=== PATIENT | female | born 1970 | race Hispanic/Latino ===

== ENCOUNTER 2016-12-27 22:46 | Inpatient (IN) | payer MEDICARE, OTHER ==
[2016-12-27 22:47] VITALS: BMI 36.8
--- NOTE | 2016-12-27 23:46 | C.PDOC ---
History Of Present Illness 46 y/o female presents to ED with complaints of increasing shortness of breath, lower extremity edema, and increased abdominal girth over the last 2 weeks. Patient is currently on chemotherapy for leukemia. Speaking in complete sentences. Denies fever or chills. Patient also reports paroxysmal nocturnal dyspnea. Time Seen by Provider: 12/27/16 23:46 Chief Complaint (Nursing): Abdominal Pain History Per: Patient History/Exam Limitations: no limitations Onset/Duration Of Symptoms: Days Current Symptoms Are (Timing): Worse Context: Other Pain Scale Rating Of: 0 Associated Symptoms: denies: Fever, Chills, Nausea, Vomiting, Diarrhea Exacerbating Factors: Movement, Other (supine) Recent travel outside of the [place]: No Additional History Per: Family Abnormal Vaginal Bleeding: No Past Medical History Reviewed: Historical Data, Nursing Documentation, Vital Signs Vital Signs: Last Vital Signs Temp 97.5 F L 12/27/16 22:51 Pulse 104 H 12/28/16 01:12 Resp 20 12/28/16 01:12 BP 90/61 L 12/28/16 01:12 Pulse Ox 99 12/28/16 01:12 - Medical History PMH: Asthma, CHF, Diabetes, HTN, Malignancy (Leukemia ) - [employer] Procedures NEBULIZER THERAPY (12/05/13) RT & LT HEART ANGIOCARD (12/08/13) RT/LEFT HEART CARD CATH (12/08/13) TETANUS TOXOID ADMINIST (05/12/13) Family History: States: Unknown Family Hx - Social History Hx Tobacco Use: No Hx Alcohol Use: No Hx Substance Use: No - Immunization History Hx Tetanus Toxoid Vaccination: No Hx Influenza Vaccination: No Hx Pneumococcal Vaccination: No Review Of Systems Constitutional: Negative for: Fever, Chills Cardiovascular: Positive for: Paroxysmal Noc. Dyspnea, Edema (lower extremities) . Negative for: Chest Pain, Light Headedness Respiratory: Positive for: Shortness of Breath, SOB with Excertion. Negative for: Cough Gastrointestinal: Positive for: Other (increased abdominal girth). Negative for : Nausea, Vomiting Genitourinary: Negative for: Dysuria Musculoskeletal: Negative for: Back Pain Skin: Negative for: Rash Neurological: Negative for: Dizziness Psych: Negative for: Anxiety Physical Exam - Physical Exam Appears: Non-toxic, No Acute Distress, Other (awake, alert, oriented ) Skin: Warm, Dry Head: Atraumatic, Normacephalic Eye(s): bilateral: Normal Inspection Oral Mucosa: Moist Neck: Supple Chest: Symmetrical, No Tenderness Cardiovascular: Rhythm Regular Respiratory: Rales (bibasilar), No Rhonchi, No Stridor, No Wheezing Gastrointestinal/Abdominal: Soft, No Tenderness, Distention, No Guarding, No Rebound, Other (tympanic to percussion) Back: Normal Inspection Extremity: Normal ROM, Pedal Edema (pitting edema to bilateral lower extremities ), Capillary Refill (< 2 sec. ) Extremity: Bilateral: Atraumatic, Normal Color And Temperature Neurological/Psych: Oriented x3, Normal Speech, Normal Cognition Gait: Steady ED Course And Treatment - Laboratory Results Result Diagrams: 12/28/16 00:22 12/28/16 00:22 ECG: Interpreted By Me, Viewed By Me ECG Rhythm: Nonspecific Changes O2 Sat by Pulse Oximetry: 100 (RA) Pulse Ox Interpretation: Normal - Radiology CXR: Interpreted by Me, Viewed By Me CXR Interpretation: Yes: Cardiomegaly, Other (left effusion). No: Infiltrates, Fracture Progress Note: Aspirin 325mg, EKG, CXR, bloodwork ordered. Disposition Discussed With : Juana Floyd Comment[facility] took [facility] the care at 1:54 AM Doctor Will See Patient In The: Hospital Counseled Patient/Family Regarding: Studies Performed, Diagnosis - Disposition Disposition: HOSPITALIZED Disposition Time: 23:46 Condition: FAIR - POA Present On Arrival: Poor Glycemic Control - Clinical Impression Clinical Impression: Dyspnea, CHF (congestive heart failure) - Scribe Statement The provider has reviewed the documentation as recorded by the Renetta Martin Provider Scribe Attestation: All medical record entries made by the Barberibmercedez were at my direction and personally dictated by me. I have reviewed the chart and agree that the record accurately reflects my personal performance of the history, physical exam, medical decision making, and the department course for this patient. I have also personally directed, reviewed, and agree with the discharge instructions and disposition. Decision To Admit - Pt Status Changed To: Hospital Disposition Of: Inpatient - Admit Certification Admit to Inpatient:: After my assessment, the patient will require hospitalization for at least two midnights. This is because of the severity of symptoms shown, intensity of services needed, and/or the medical risk in this patient being treated as an outpatient. - InPatient: Physician Admission Certification:: After my assessment, the patient will require hospitalization for at least two midnights. This is because of the severity of symptoms shown, intensity of services needed, and/or the medical risk in this patient being treated as an outpatient. - . Bed Request Type: Telemetry Admitting Physician: Juana Floyd Patient Diagnosis: Dyspnea, CHF (congestive heart failure)
[2016-12-27] MEDS ORDERED: Aspirin 325 mg EC Tablets PO STA (23:51)
[2016-12-28 00:37] LABS: BASO # 0.1 K/uL (0.0-0.2); BASO % 1.4 % (0.0-2.0); EOS # 0.2 K/uL (0.0-0.7); EOS % 1.8 % (0.0-4.0); HEMATOCRIT 38.1 % (34.0-47.0); LYMPH # 0.9 K/uL (1.0-4.3); LYMPH % 9.5 % (20.0-40.0); MEAN CELL VOLUME 91.3 fL (81.0-99.0); MEAN CORPUSCULAR HEMOGLOBIN 29.7 pg (27.0-31.0); MEAN CORPUSCULAR HGB CONC 32.5 g/dL (33.0-37.0); MEAN PLATELET VOLUME 10.1 fL (7.2-11.7); MONO # 0.7 K/uL (0.0-0.8); MONO % 7.2 % (0.0-10.0); PLATELET COUNT 216 K/uL (130-400); RED CELL DISTRIBUTION WIDTH 15.6 % (11.5-14.5); WHITE BLOOD COUNT 9.4 K/uL (4.8-10.8)
[2016-12-28 00:38] LABS: INR 1.1
[2016-12-28 00:43] LABS: CHLORIDE 97 mmol/L (98-107)
[2016-12-28 00:44] LABS: POTASSIUM 4.1 mmol/L (3.6-5.2); SODIUM 133 mmol/L (132-148)
[2016-12-28 00:46] LABS: ALB/GLOB RATIO 0.7 (1.0-2.1); ALKALINE PHOSPHATASE 82 U/L (38-126); AST/SGOT 37 U/L (14-36); BILIRUBIN,TOTAL 0.8 mg/dL (0.2-1.3); CARBON DIOXIDE 26 mmol/L (22-30); GFR AFRICAN-AMERICAN 42; TOTAL PROTEIN 6.9 g/dL (6.3-8.3)
[2016-12-28 00:47] LABS: ALT/SGPT 20 U/L (9-52); BLOOD UREA NITROGEN 25 mg/dL (7-17); CALCIUM 7.2 mg/dl (8.6-10.4); GLUCOSE,RANDOM 169 mg/dL (65-105)
[2016-12-28 01:17] LABS: THYROID STIMULATING HORMONE 8.59 mIU/L (0.46-4.68)
[2016-12-28 02:03] LABS: BASOPHIL 1 % (0-2); EOSINOPHIL 2 % (0-4); NEUTROPHIL 83 % (50-75); TOTAL CELLS COUNTED 100
[2016-12-28 06:11] LABS: CHLORIDE 98 mmol/L (98-107)
[2016-12-28 06:12] LABS: POTASSIUM 3.5 mmol/L (3.6-5.2); SODIUM 133 mmol/L (132-148)
[2016-12-28 06:14] LABS: ALB/GLOB RATIO 0.7 (1.0-2.1); ALKALINE PHOSPHATASE 78 U/L (38-126); ALT/SGPT 26 U/L (9-52); AST/SGOT 25 U/L (14-36); BILIRUBIN,TOTAL 0.2 mg/dL (0.2-1.3); BLOOD UREA NITROGEN 25 mg/dL (7-17); CARBON DIOXIDE 27 mmol/L (22-30); GFR AFRICAN-AMERICAN 42; GLUCOSE,RANDOM 153 mg/dL (65-105); TOTAL PROTEIN 5.9 g/dL (6.3-8.3)
[2016-12-28 06:15] LABS: CALCIUM 7.3 mg/dl (8.6-10.4)
[2016-12-28] MEDS ORDERED: Fluticasone-Salmeterol 250-50mcg Diskus IH SCH (08:00)
--- NOTE | 2016-12-28 08:14 | RAD ---
PROCEDURE: CHEST RADIOGRAPH, 1 VIEW HISTORY: SOB COMPARISON: None available. FINDINGS: LUNGS: Possible left lower lobe infiltrate versus overlying soft tissue density. PLEURA: No pneumothorax or pleural fluid seen. CARDIOVASCULAR: Normal. OSSEOUS STRUCTURES: No significant abnormalities. VISUALIZED UPPER ABDOMEN: Normal. OTHER FINDINGS: None. IMPRESSION: Question left lower lobe infiltrate versus overlying soft tissue density.
[2016-12-28 08:59] LABS: FREE T4 1.38 ng/dL (0.78-2.19)
[2016-12-28] MEDS: Levothyroxine 25 MCG TAB PO SCH (09:09)
[2016-12-28 09:14] LABS: THYROID STIMULATING HORMONE 11.6 mIU/L (0.46-4.68)
[2016-12-28] MEDS: Ipratropium 0.02% Inhal Soln (0.5 mg/2.5 ml) UD IH SCH ×2 (09:42→14:31)
[2016-12-28] MEDS: Enoxaparin 60 mg Syringe SC SCH ×2 (12:41→23:30)
[2016-12-28] MEDS ORDERED: Potassium Chloride 20 mEq ER Tab PO ONE (12:46)
[2016-12-28] MEDS: Potassium Chloride 20 mEq ER Tab PO SCH (12:47)
--- NOTE | 2016-12-28 13:23 | CON ---
DATE: 12/28/2016 REASON FOR CONSULTATION: Atrial fibrillation. The patient is a very poor historian and when I spoke to the patient's daughter, Meseret at [phone], the daughter did not provide me with significant information. The patient is a 46-year-old female w ho was diagnosed with severe mitral stenosis in 2013, underwent a valve surgery in 2013 at [facility]. The patient or her daughter are not clear about what was done exactly. The valve card is not available to me and the daughter could not convey significant information from that card to me except for the word annuloplasty. Neither the patient nor the daughter are aware of Coumadin or any blood thinner medication given after the surgery. The patient was also diagnosed with leukemi a. Neither the daughter nor the patient know what kind of leukemia and was diagnosed at the same armando e at [facility]. The patient presented because of shortness of breath and leg swell ing as well as increased abdominal girth. The patient denies any retrosternal chest pain. The patie nt, at the time of cardiac catheterization in 2013, was reported to have had normal coronary arteries . SOCIAL HISTORY: Former smoker. MEDICATIONS: Advair 1 puff twice a day, Aldactone 25 mg once a day, aspirin 81 mg once a day, Flexer il 10 mg once a day, Glucophage 1 gram twice a day, Lasix 40 mg intravenously daily, Singulair 10 mg at bedtime, Synthroid 25 mcg once a day. REVIEW OF SYSTEMS: No fever or chills. No vomiting or diarrhea. No hemoptysis. No hematemesis or melena. PHYSICAL EXAMINATION: GENERAL: The patient is a middle-aged female who does not appear to be in acute distress. VITAL SIGNS: Blood pressure 93/65, heart rate 86, temperature 98.3, respirations 20. HEENT: Normocephalic. NECK: No JVD. CHEST: Diminished breath sounds over the left base. HEART: S1, S2 . ABDOMEN: Soft. EXTREMITIES: 2+ pitting edema. Chest x-ray revealed cardiomegaly, cannot rule out left lower lobe infiltrate or left pleural effusio n. EKG revealed atrial fibrillation at rate of 79, low voltage QRS, nonspecific T-wave changes. LABORATORIES: PT, PTT and INR are within normal limits. SMA-7: Sodium 133, potassium 3.5, chloride 98, CO2 27, glucose 153, BUN 25, creatinine 1.6. Two sets of troponins are negative. ProBNP 7350. TSH level is elevated at 11.6. ASSESSMENT: 1. Status post surgery for severe mitral stenosis since 2013, possibly mitral valve repair and annul oplasty. However, the details of the surgery are unavailable. 2. New onset atrial fibrillation. 3. History of leukemia. 4. Rule out deep venous thrombosis. RECOMMENDATIONS: Continue current Advair, Aldactone, aspirin, metformin, IV Lasix and optimize Synth roid replacement. Obtain an echocardiograph study and venous Doppler of the lower extremities. Star t therapeutic regimen of subcutaneous Lovenox therapy. Fernando Fischer MD cc: [id number] TT: 12/28/2016 13:23:05 Confirmation # [id number] Dictation # [id number]
--- NOTE | 2016-12-28 16:44 | CARD ---
APPROVED REPORT EXAM: Two-dimensional and M-mode echocardiogram with Doppler and color Doppler. Other Information Quality : AverageRhythm : NSR INDICATION Mitral Valve Disease Surgery/Intervention CABG: RISK FACTORS Hypertension Obesity Hyperlipidemia M-Mode DIMENSIONS RVDd2.62 (2.1-3.2cm)Left Atrium (MM)4.37 (2.5-4.0cm) IVSd1.29 (0.7-1.1cm)Aortic Root2.26 (2.2-3.7cm) LVDd4.14 (4.0-5.6cm)Aortic Cusp Exc.1.68 (1.5-2.0cm) PWd1.44 (0.7-1.1cm)FS (%) 33 % LVDs2.77 (2.0-3.8cm)LVEF (%)62 (>50%) Aortic Valve AoV Peak Jjygbyec828.2cm/Dinorah Peak GR.12mmHg Mitral Valve MV E Gclkjxlq105.1cm/sMV A Buyhlxkg05.1cm/sMV [id number] E/A ratio1.7MVA (PHT)2.21cm2 TDI E/Lateral E'0.0E/Medial E'0.0 Tricuspid Valve TR Peak Vmupkwbn835nd/sRAP BEIOIUWD29kbWnBL Peak Gr.41mmHg [id number] LEFT VENTRICLE There is mild to moderate concentric left ventricular hypertrophy. The left ventricular systolic function is normal. The left ventricular ejection fraction is within the normal range. Septal motion consistent with post-operative state. Transmitral Doppler flow pattern is Grade III restrictive diastolic dysfunction. RIGHT VENTRICLE The right ventricle is mildly to moderately dilated. The right ventricular systolic function is normal. ATRIA The left atrium is moderately dilated. The right atrium is moderately dilated. AORTIC VALVE The aortic valve is normal in structure. No aortic regurgitation is present. MITRAL VALVE There is no mitral valve regurgitation noted. Probable annuloplasty ring is noted in the mitral position. TRICUSPID VALVE The tricuspid valve is normal in structure. There is moderate tricuspid regurgitation. Right ventricular systolic pressure is estimated at 50-60 mmHg. There is moderate-severe pulmonary hypertension. PULMONIC VALVE There is mild pulmonic valvular regurgitation. GREAT VESSELS The aortic root is normal in size. Dilated IVC with poor inspiration collapse is consistent with elevated right atrial pressure. PERICARDIAL EFFUSION There is no pericardial effusion. <Conclusion> There is mild to moderate concentric left ventricular hypertrophy. The left ventricular systolic function is normal. Septal motion consistent with post-operative state. Transmitral Doppler flow pattern is Grade III restrictive diastolic dysfunction. The right ventricle is mildly to moderately dilated. The right ventricular systolic function is normal. Probable annuloplasty ring is noted in the mitral position. There is no mitral valve regurgitation noted. There is moderate tricuspid regurgitation. Right ventricular systolic pressure is estimated at 55-60 mmHg compatible with moderate-severe pulmonary hypertension. There is no pericardial effusion.
[2016-12-28] MEDS ORDERED: NILOTINIB HCL PO SCH (18:00)
--- NOTE | 2016-12-28 18:02 | CP.PCM.HP ---
History of Present Illness - History of Present Illness History of Present Illness: sob oeadeama abd distension Present on Admission - Present on Admission Any Indicators Present on Admission: No Review of Systems - Review of Systems Systems not reviewed;Unavailable: Acuity of Condition - Constitutional Constitutional: Weight Gain - EENT Eyes: As Per HPI Ears: As Per HPI Nose/Mouth/Throat: As Per HPI - Breasts Breasts: As Per HPI - Cardiovascular Cardiovascular: Dyspnea, Dyspnea on Exertion, Edema, Leg Edema, Orthopnea, Palpitations - Respiratory Respiratory: Dyspnea - Gastrointestinal Gastrointestinal: As Per HPI - Genitourinary Genitourinary: As Per HPI - Reproductive: Female Reproductive:Female: As Per HPI - Menstruation Menstruation: As Per HPI - Musculoskeletal Musculoskeletal: As Per HPI - Integumentary Integumentary: As Per HPI - Neurological Neurological: As Per HPI - Endocrine Endocrine: As Per HPI - Hematologic/Lymphatic Hematologic: As Per HPI Past Patient History - Past Social History Smoking Status: Never Smoked - CARDIAC Hx Congestive Heart Failure: Yes Hx Hypertension: Yes - PULMONARY Hx Asthma: Yes - ENDOCRINE/METABOLIC Hx Diabetes Mellitus Type 2: Yes - HEMATOLOGICAL/ONCOLOGICAL Hx Leukemia: Yes - PSYCHIATRIC Hx Substance Use: No - SURGICAL HISTORY Hx Open Heart Surgery: Yes Other/Comment: ONE OVARY REMOVED - ANESTHESIA Hx Anesthesia: Yes Hx Anesthesia Reactions: No Meds Allergies/Adverse Reactions: Allergies Allergy/AdvReac Type Severity Reaction Status Date / Time No Known Allergies Allergy Verified 12/27/16 22:56 Physical Exam - Constitutional Appears: Non-toxic - Head Exam Head Exam: NORMAL INSPECTION - Eye Exam Eye Exam: Normal appearance Pupil Exam: PERRL - ENT Exam ENT Exam: Mucous Membranes Moist - Neck Exam Neck exam: Positive for: Full Rom - Respiratory Exam Respiratory Exam: Decreased Breath Sounds, Rales - Cardiovascular Exam Cardiovascular Exam: Irregular Rhythm - GI/Abdominal Exam GI & Abdominal Exam: Normal Bowel Sounds - Rectal Exam Rectal Exam: NORMAL INSPECTION - Extremities Exam Extremities exam: Positive for: calf tenderness, pedal edema - Back Exam Back exam: NORMAL INSPECTION - Neurological Exam Neurological exam: Alert, Oriented x3 - Psychiatric Exam Psychiatric exam: Normal Mood Results - Vital Signs Recent Vital Signs: Last Vital Signs Temp 98.9 F 12/28/16 16:16 Pulse 68 12/28/16 16:16 Resp 18 12/28/16 16:16 BP 97/64 L 12/28/16 16:16 Pulse Ox 98 05/08/17 16:16 - Labs Result Diagrams: 12/28/16 00:22 12/28/16 06:01 Labs: Laboratory Results - last 24 hr 12/28/16 12/28/16 12/28/16 06:01 06:01 07:17 Sodium 133 Potassium 3.5 L Chloride 98 Carbon Dioxide 27 Anion Gap 12 BUN 25 H Creatinine 1.6 H Est GFR ( Amer) 42 Est GFR (Non-Af Amer) 35 POC Glucose (mg/dL) 138 H Random Glucose 153 H Calcium 7.3 L Total Bilirubin 0.2 AST 25 ALT 26 Alkaline Phosphatase 78 Total Creatine Kinase 44 CK-MB (Mass) 0.87 Troponin I, Quant < 0.0120 NT-Pro-B Natriuret Pep 7350 H Total Protein 5.9 L Albumin 2.4 L Globulin 3.4 Albumin/Globulin Ratio 0.7 L Free T4 1.38 TSH 3rd Generation 11.60 H 12/28/16 12/28/16 11:50 16:47 Sodium Potassium Chloride Carbon Dioxide Anion Gap BUN Creatinine Est GFR ( Amer) Est GFR (Non-Af Amer) POC Glucose (mg/dL) 188 H 138 H Random Glucose Calcium Total Bilirubin AST ALT Alkaline Phosphatase Total Creatine Kinase CK-MB (Mass) Troponin I, Quant NT-Pro-B Natriuret Pep Total Protein Albumin Globulin Albumin/Globulin Ratio Free T4 TSH 3rd Generation Assessment & Plan - Assessment and Plan (Free Text) Assessment: chf atrial fibrilation dm [place] obesity Plan: as per orders - Date & Time Date: 12/28/16 Time: 18:05
[2016-12-28] MEDS: Magnesium Oxide 400 mg Tab UD PO SCH (18:52)
[2016-12-28] MEDS: NILOTINIB HCL PO SCH (19:43)
[2016-12-28] MEDS ORDERED: Sodium Chloride 0.9% 500 ML IV ONE (21:23)
[2016-12-28] MEDS ORDERED: Digoxin 500 mcg/2ml (0.5 mg/2ml) Inj IVP ONE (21:56)
[2016-12-28] MEDS ORDERED: Digoxin 250 mcg (0.25 mg) Tab PO STA (22:08)
[2016-12-28] MEDS: Pantoprazole 40 mg EC Tab PO SCH (22:27)
[2016-12-29] MEDS: Levothyroxine 25 MCG TAB PO SCH (06:10)
--- NOTE | 2016-12-29 07:40 | CARD ---
APPROVED REPORT EKG Measurement Heart [id number] <Conclusion> Atrial fibrillation Low voltage QRS Nonspecific T wave abnormality Abnormal ECG
[2016-12-29] MEDS: Ipratropium 0.02% Inhal Soln (0.5 mg/2.5 ml) UD IH SCH ×3 (08:28→19:18)
[2016-12-29] MEDS: Potassium Chloride 20 mEq ER Tab PO SCH (09:42)
[2016-12-29] MEDS: Magnesium Oxide 400 mg Tab UD PO SCH ×2 (09:43→18:50)
--- NOTE | 2016-12-29 10:22 | CARD ---
APPROVED REPORT EKG Measurement Heart [id number] <Conclusion> Atrial fibrillation with rapid ventricular response Low voltage QRS Nonspecific T wave abnormality Abnormal ECG
[2016-12-29] MEDS: Enoxaparin 60 mg Syringe SC SCH ×2 (10:34→22:45)
[2016-12-29] MEDS: NILOTINIB HCL PO SCH ×2 (10:34→18:50)
--- NOTE | 2016-12-29 11:46 | CP.PCM.PN ---
Subjective - Date & Time of Evaluation Date of Evaluation: 12/29/16 Time of Evaluation: 11:43 - Subjective Subjective: PT STILL FEELS SOB SWALLEN LEGS STAY IN BED AFRAID OF FALLING Objective - Vital Signs/Intake and Output Vital Signs (last 24 hours): Temp Pulse Resp BP Pulse Ox 98.1 F 115 H 20 119/69 96 12/29/16 07:30 12/29/16 07:30 12/29/16 07:30 12/29/16 09:47 12/29/16 07:30 Intake and Output: 12/29/16 12/29/16 06:59 18:59 Intake Total 400 480 Balance 400 480 - Medications Medications: Current Medications Aspirin (Ecotrin) 81 mg PO DAILY [facility] Last Admin: 12/29/16 09:42 Dose: 81 mg Atenolol (Tenormin) 25 mg PO DAILY [facility] Last Admin: 12/29/16 09:43 Dose: 25 mg Digoxin (Lanoxin) 0.25 mg PO DAILY@1800 [facility] Enoxaparin Sodium (Lovenox) 60 mg SC Q12 [facility] Last Admin: 12/29/16 10:34 Dose: 60 mg Ferrous Sulfate (Feosol) 325 mg PO BID [facility] Last Admin: 12/29/16 09:42 Dose: 325 mg Furosemide (Lasix) 40 mg IVP DAILY [facility] Last Admin: 12/29/16 09:47 Dose: 40 mg Home Med (Nilotinib Hcl [Tasigna]) 2 cap PO BID [facility] Last Admin: 12/29/16 10:34 Dose: 2 cap Ipratropium [place] (Atrovent) 0.5 mg IH RTID [facility] Last Admin: 12/29/16 08:28 Dose: 0.5 mg Levothyroxine Sodium (Synthroid) 25 mcg PO DAILY@0630 [facility] Last Admin: 12/29/16 06:10 Dose: 25 mcg Magnesium Oxide (Mag-Ox) 400 mg PO BID [facility] Last Admin: 12/29/16 09:43 Dose: 400 mg Metformin HCl (Glucophage) 1,000 mg PO BID [facility] Last Admin: 12/29/16 09:43 Dose: 1,000 mg Pantoprazole Sodium (Protonix Ec Tab) 40 mg PO HS [facility] Last Admin: 12/28/16 22:27 Dose: Not Given Potassium Chloride (K-Dur 20 Meq Er Tab) 20 meq PO DAILY [facility] Last Admin: 12/29/16 09:42 Dose: 20 meq Spironolactone (Aldactone) 25 mg PO DAILY SURAJ Last Admin: 12/29/16 09:41 Dose: 25 mg - Labs Labs: 12/28/16 06:01 PT 12.1 SECONDS (9.7-12.2) 12/28/16 00:22 INR 1.1 12/28/16 00:22 APTT 34 SECONDS (21-34) 12/28/16 00:22 - Constitutional Appears: Non-toxic - Head Exam Head Exam: NORMAL INSPECTION - Eye Exam Eye Exam: Normal appearance Pupil Exam: NORMAL ACCOMODATION - ENT Exam ENT Exam: Normal Exam - Neck Exam Neck Exam: Full ROM - Respiratory Exam Respiratory Exam: Decreased Breath Sounds, Rales - Cardiovascular Exam Cardiovascular Exam: Irregular Rhythm - GI/Abdominal Exam GI & Abdominal Exam: Normal Bowel Sounds - Exam External exam: Swelling - Extremities Exam Extremities Exam: Calf Tenderness - Back Exam Back Exam: NORMAL INSPECTION - Psychiatric Exam Psychiatric exam: Normal Affect - Skin Skin Exam: Normal Color Assessment and Plan - Assessment and Plan (Free Text) Assessment: CHF AT FIB COPD GENERALISED WEEKNESS Plan: DISCUSED WITH DR LEXI THOMAS PER ORDERS
--- NOTE | 2016-12-29 13:24 | PN ---
DATE: 12/29/2016 The patient's shortness of breath has improved. She is still experiencing leg swelling. No retroste rnal chest pain. PHYSICAL EXAMINATION: VITAL SIGNS: Blood pressure 119/69, heart rate 92, temperature 98.1, respirations 20. HEENT: Normocephalic. NECK: No JVD. CHEST: Bibasilar rhonchi. HEART: S1, S2 regular. ABDOMEN: Soft. EXTREMITIES: 2+ pitting edema. Venous Doppler of the lower extremity, preliminary report is no DVT. Three sets of troponins are neg ative. ProBNP 7350. Echocardiography study was consistent with mild to moderate concentric LVH with normal left ventricular systolic function. Grade III restrictive diastolic dysfunction. Mitral celia uloplasty ring. Moderate to severe pulmonary hypertension. ASSESSMENT: 1. Status post mitral valve annuloplasty. 2. Moderate to severe pulmonary hypertension. 3. Right-sided heart failure. 4. New onset atrial fibrillation. 5. History of leukemia, which was treated recently with chemotherapy. RECOMMENDATIONS: Continue Aldactone at 25 mg t.i.d., aspirin 81 mg once a day, ferrous sulfate 325 m g twice a day, Lanoxin 0.25 mg orally daily, Lasix 40 mg intravenously daily, K-Dur 20 mEq orally onc e a day, therapeutic subcutaneous Lovenox at 60 mg twice a day, atenolol 25 mg daily. The case was d iscussed with the primary physician, Dr. Juana Floyd, and yesterday the patient was started on digox in, which included 0.25 mg single intravenous dose besides the daily oral regimen of 0.25 mg after sh e had rapid atrial fibrillation on the monitor. Fernando Fischer MD cc: [id number] TT: 12/29/2016 13:24:13 Confirmation # [id number] Dictation # [id number] en
[2016-12-29] MEDS ORDERED: Digoxin 250 mcg (0.25 mg) Tab PO SCH (18:00)
--- NOTE | 2016-12-29 20:04 | VASCLAB ---
PROCEDURE: Lower Extremity Venous Duplex Exam. HISTORY: r/o DVT PRIORS: None. TECHNIQUE: Bilateral common femoral, femoral, popliteal and posterior tibial, peroneal and great saphenous veins were evaluated. Flow was assessed with color Doppler, compressibility, assessment of phasic flow and augmentation response. Report prepared by Brendan Fernandez, ROBERT, RVT FINDINGS: RIGHT: 1. Common Femoral Vein: 1.1. Compressibility - Fully compressible: Thrombus - None : Flow - Phasic: Augmentation -Normal: Reflux - None. 2. Femoral Vein: 2.1. Compressibility - Fully compressible: Thrombus - None : Flow - Phasic: Augmentation -Normal: Reflux - None. 3. Popliteal Vein: 3.1. Compressibility - Fully compressible: Thrombus - None : Flow - Phasic: Augmentation -Normal: Reflux - None. 4. Posterior Tibial Vein: 4.1. Compressibility - Fully compressible: Thrombus - None: Flow - Phasic: Augmentation -Normal: Reflux - None. 5. Peroneal Vein: 5.1. Compressibility - Fully compressible: Thrombus - None: Flow - Phasic: Augmentation -Normal: Reflux - None. 6. Great Saphenous Vein: 6.1. Compressibility - Fully compressible: Thrombus - None: Flow - Phasic: Augmentation - Normal: Reflux - None. LEFT: 1. Common Femoral Vein: 1.1. Compressibility - Fully compressible: Thrombus - None: Flow - Phasic: Augmentation -Normal: Reflux - None. 2. Femoral Vein: 2.1. Compressibility - Fully compressible: Thrombus - None: Flow - Phasic: Augmentation -Normal: Reflux - None. 3. Popliteal Vein: 3.1. Compressibility - Fully compressible: Thrombus - None : Flow - Phasic: Augmentation -Normal: Reflux - None. 4. Posterior Tibial Vein: 4.1. Compressibility - Fully compressible: Thrombus - None: Flow - Phasic: Augmentation -Normal: Reflux - None. 5. Peroneal Vein: 5.1. Compressibility - Fully compressible: Thrombus - None: Flow - Phasic: Augmentation -Normal: Reflux - None. 6. Great Saphenous Vein: 6.1. Compressibility - Fully compressible: Thrombus - None: Flow - Phasic: Augmentation - Normal: Reflux - None. OTHER FINDINGS: Bilateral lower extremity soft tissue edema. IMPRESSION: Right: No evidence of deep or superficial vein thrombosis of the right lower extremity. Normal valve function noted of the right side. Left: No evidence of deep or superficial vein thrombosis of the left lower extremity. Normal valve function noted of the left side.
[2016-12-29] MEDS: Pantoprazole 40 mg EC Tab PO SCH (22:45)
[2016-12-30] MEDS: Levothyroxine 25 MCG TAB PO SCH (05:55)
[2016-12-30 07:19] LABS: BASO % 0.7 % (0.0-2.0); EOS # 0.2 K/uL (0.0-0.7); EOS % 2.4 % (0.0-4.0); HEMATOCRIT 33.7 % (34.0-47.0); LYMPH # 0.6 K/uL (1.0-4.3); LYMPH % 9.8 % (20.0-40.0); MEAN CELL VOLUME 90.9 fL (81.0-99.0); MEAN CORPUSCULAR HEMOGLOBIN 29.9 pg (27.0-31.0); MEAN CORPUSCULAR HGB CONC 32.9 g/dL (33.0-37.0); MEAN PLATELET VOLUME 9.7 fL (7.2-11.7); MONO # 0.6 K/uL (0.0-0.8); MONO % 8.5 % (0.0-10.0); PLATELET COUNT 170 K/uL (130-400); RED CELL DISTRIBUTION WIDTH 15.3 % (11.5-14.5); WHITE BLOOD COUNT 6.5 K/uL (4.8-10.8)
[2016-12-30 07:46] LABS: POTASSIUM 3.7 mmol/L (3.6-5.2)
[2016-12-30 07:49] LABS: CALCIUM 7.3 mg/dl (8.6-10.4)
[2016-12-30] MEDS: Ipratropium 0.02% Inhal Soln (0.5 mg/2.5 ml) UD IH SCH ×3 (07:55→19:46)
[2016-12-30 09:01] LABS: BASOPHIL 1 % (0-2); EOSINOPHIL 3 % (0-4); NEUTROPHIL 83 % (50-75); TOTAL CELLS COUNTED 100
[2016-12-30] MEDS: Potassium Chloride 20 mEq ER Tab PO SCH (09:14)
[2016-12-30] MEDS: Magnesium Oxide 400 mg Tab UD PO SCH ×2 (09:14→18:34)
[2016-12-30] MEDS: NILOTINIB HCL PO SCH ×2 (09:15→18:36)
[2016-12-30] MEDS: Enoxaparin 60 mg Syringe SC SCH ×2 (11:00→22:58)
--- NOTE | 2016-12-30 17:45 | PN ---
DATE: 12/30/2016 SUBJECTIVE: The patient's shortness of breath has improved, as well as leg swelling. OBJECTIVE: VITAL SIGNS: Blood pressure 112/69, heart rate 99, temperature 97.5, respirations 20. HEENT: Normocephalic. NECK: No JVD. CHEST: Diminished breath sounds over the bases. HEART: S1, S2 regular. EXTREMITIES: 1+ pitting edema. LABORATORIES: Today's SMA-7: Sodium 132, potassium 3.7, chloride 99, CO2 of 26, glucose 129, BUN 21 , creatinine 1.5. Today's hemoglobin and hematocrit 11.1 and 33.7, white count and platelet count ar e within normal limit. Official report of venous Doppler of lower extremities is negative. ASSESSMENT: 1. New onset atrial fibrillation. 2. Status post what appears to be mitral valve repair with mitral annuloplasty for severe aortic sten osis. 3. History of leukemia. 4. Chronic renal insufficiency. RECOMMENDATIONS: Continue Aldactone 25 mg once a day, aspirin 81 mg once a day, K-Dur 20 mEq once a day. Reduce Lanoxin to 0.125 mg daily. Continue IV Lasix 40 mg once a day. Reduce Lovenox to 50 mg twice a day and start Coumadin therapy with initial dose today of 5 mg. Fernando Fischer MD cc: [id number] TT: 12/30/2016 17:45:08 Confirmation # [id number] Dictation # [id number]
[2016-12-30] MEDS ORDERED: Enoxaparin 60 mg Syringe SC SCH (18:00)
[2016-12-30] MEDS: Digoxin 125 mcg (0.125 mg) Tab PO SCH (18:35)
--- NOTE | 2016-12-30 19:00 | CP.PCM.PN ---
Subjective - Date & Time of Evaluation Date of Evaluation: 12/30/16 Time of Evaluation: 18:57 - Subjective Subjective: feels beter less sob still at fib Objective - Vital Signs/Intake and Output Vital Signs (last 24 hours): Temp Pulse Resp BP Pulse Ox 97.5 F L 99 H 20 112/69 97 12/30/16 15:30 12/30/16 15:30 12/30/16 15:30 12/30/16 15:30 12/30/16 15:30 Intake and Output: 12/30/16 12/30/16 06:59 18:59 Intake Total 105 Balance 105 - Medications Medications: Current Medications Aspirin (Ecotrin) 81 mg PO DAILY [facility] Last Admin: 12/30/16 09:13 Dose: 81 mg Atenolol (Tenormin) 25 mg PO DAILY [facility] Last Admin: 12/30/16 09:13 Dose: 25 mg Digoxin (Lanoxin) 0.125 mg PO DAILY@1800 [facility] Last Admin: 12/30/16 18:35 Dose: 0.125 mg Enoxaparin Sodium (Lovenox) 50 mg SC Q12H [facility] Ferrous Sulfate (Feosol) 325 mg PO BID [facility] Last Admin: 12/30/16 18:34 Dose: 325 mg Furosemide (Lasix) 40 mg IVP DAILY [facility] Last Admin: 12/30/16 09:30 Dose: Not Given Home Med (Nilotinib Hcl [Tasigna]) 2 cap PO BID [facility] Last Admin: 12/30/16 18:36 Dose: 2 cap Ipratropium [place] (Atrovent) 0.5 mg IH RTID [facility] Last Admin: 12/30/16 13:34 Dose: 0.5 mg Levothyroxine Sodium (Synthroid) 25 mcg PO DAILY@0630 [facility] Last Admin: 12/30/16 05:55 Dose: 25 mcg Magnesium Oxide (Mag-Ox) 400 mg PO BID [facility] Last Admin: 12/30/16 18:34 Dose: 400 mg Metformin HCl (Glucophage) 1,000 mg PO BID [facility] Last Admin: 12/30/16 18:34 Dose: 1,000 mg Pantoprazole Sodium (Protonix Ec Tab) 40 mg PO HS [facility] Last Admin: 12/29/16 22:45 Dose: 40 mg Potassium Chloride (K-Dur 20 Meq Er Tab) 20 meq PO DAILY [facility] Last Admin: 12/30/16 09:14 Dose: 20 meq Spironolactone (Aldactone) 25 mg PO DAILY [facility] Last Admin: 12/30/16 09:15 Dose: 25 mg - Labs Labs: 12/30/16 07:05 12/30/16 07:05 PT 12.1 SECONDS (9.7-12.2) 12/28/16 00:22 INR 1.1 12/28/16 00:22 APTT 34 SECONDS (21-34) 12/28/16 00:22 - Constitutional Appears: Non-toxic - Head Exam Head Exam: NORMAL INSPECTION - Eye Exam Eye Exam: Normal appearance Pupil Exam: NORMAL ACCOMODATION - ENT Exam ENT Exam: Mucous Membranes Moist - Neck Exam Neck Exam: Full ROM - Respiratory Exam Respiratory Exam: Decreased Breath Sounds - Cardiovascular Exam Cardiovascular Exam: Irregular Rhythm - GI/Abdominal Exam GI & Abdominal Exam: Normal Bowel Sounds - Rectal Exam Rectal Exam: NORMAL INSPECTION - Extremities Exam Extremities Exam: Full ROM, Pedal Edema - Back Exam Back Exam: NORMAL INSPECTION - Neurological Exam Neurological Exam: Normal Gait - Psychiatric Exam Psychiatric exam: Normal Affect Assessment and Plan - Assessment and Plan (Free Text) Assessment: chf at fib obesity Plan: as per orders
[2016-12-30] MEDS: Pantoprazole 40 mg EC Tab PO SCH (22:58)
[2016-12-31] MEDS: Levothyroxine 25 MCG TAB PO SCH (06:21)
[2016-12-31] MEDS: Ipratropium 0.02% Inhal Soln (0.5 mg/2.5 ml) UD IH SCH ×3 (07:36→21:32)
[2016-12-31 08:05] LABS: POTASSIUM 4.4 mmol/L (3.6-5.2)
[2016-12-31 08:08] LABS: CALCIUM 7.5 mg/dl (8.6-10.4)
[2016-12-31 08:12] LABS: INR 1.1
[2016-12-31] MEDS: Potassium Chloride 20 mEq ER Tab PO SCH (09:37)
[2016-12-31] MEDS: NILOTINIB HCL PO SCH ×2 (09:38→18:02)
[2016-12-31] MEDS: Magnesium Oxide 400 mg Tab UD PO SCH ×2 (09:38→18:00)
[2016-12-31] MEDS: Enoxaparin 60 mg Syringe SC SCH ×2 (09:38→21:57)
--- NOTE | 2016-12-31 14:28 | PN ---
DATE: 12/31/2016 The patient is still experiencing leg swelling. Shortness of breath has improved. No chest pain. PHYSICAL EXAMINATION: VITAL SIGNS: Blood pressure 108/65, heart rate 120, temperature 98, respirations 20. HEENT: Normocephalic. NECK: No JVD. CHEST: Diminished breath sounds over the bases. HEART: S1, S2 regular. EXTREMITIES: 2+ pitting edema. LABORATORIES: Digoxin level is 1.1. ASSESSMENT: 1. Status post mitral valve repair with mitral annuloplasty for severe mitral stenosis. 2. New onset atrial fibrillation. 3. History of leukemia. 4. Chronic renal insufficiency. RECOMMENDATIONS: Continue current Aldactone 25 mg once a day. Coumadin 7 mg will be administered to day. Continue K-Dur at 20 mEq once a day, digoxin at 0.125 mg once a day, Lasix at 40 mg intravenous ly once a day. Today's INR is 1.1 and I will follow tomorrow's INR. Fernando Fischer MD cc: [id number] TT: 12/31/2016 14:27:33 Confirmation # [id number] Dictation # [id number] tn
[2016-12-31] MEDS: Digoxin 125 mcg (0.125 mg) Tab PO SCH (18:00)
--- NOTE | 2016-12-31 18:28 | CP.PCM.PN ---
Subjective - Date & Time of Evaluation Date of Evaluation: 12/31/16 Time of Evaluation: 18:26 - Subjective Subjective: sob still at fib Objective - Vital Signs/Intake and Output Vital Signs (last 24 hours): Temp Pulse Resp BP Pulse Ox 97.8 F 87 20 115/78 96 12/31/16 16:34 12/31/16 16:34 12/31/16 16:34 12/31/16 16:34 12/31/16 16:34 Intake and Output: 12/31/16 12/31/16 06:59 18:59 Intake Total 580 Output Total 600 Balance -20 - Medications Medications: Current Medications Aspirin (Ecotrin) 81 mg PO DAILY [facility] Last Admin: 12/31/16 09:37 Dose: 81 mg Atenolol (Tenormin) 25 mg PO DAILY [facility] Last Admin: 12/31/16 09:36 Dose: 25 mg Digoxin (Lanoxin) 0.125 mg PO DAILY@1800 [facility] Last Admin: 12/31/16 18:00 Dose: 0.125 mg Enoxaparin Sodium (Lovenox) 50 mg SC Q12 [facility] Last Admin: 12/31/16 09:38 Dose: 50 mg Ferrous Sulfate (Feosol) 325 mg PO BID [facility] Last Admin: 12/31/16 18:01 Dose: 325 mg Furosemide (Lasix) 40 mg IVP DAILY [facility] Last Admin: 12/31/16 09:37 Dose: Not Given Home Med (Nilotinib Hcl [Tasigna]) 2 cap PO BID [facility] Last Admin: 12/31/16 18:02 Dose: 2 cap Ipratropium [place] (Atrovent) 0.5 mg IH RTID [facility] Last Admin: 12/31/16 13:33 Dose: 0.5 mg Levothyroxine Sodium (Synthroid) 25 mcg PO DAILY@0630 [facility] Last Admin: 12/31/16 06:21 Dose: 25 mcg Magnesium Oxide (Mag-Ox) 400 mg PO BID [facility] Last Admin: 12/31/16 18:00 Dose: 400 mg Metformin HCl (Glucophage) 1,000 mg PO BID [facility] Last Admin: 12/31/16 18:01 Dose: 1,000 mg Pantoprazole Sodium (Protonix Ec Tab) 40 mg PO HS [facility] Last Admin: 12/30/16 22:58 Dose: 40 mg Potassium Chloride (K-Dur 20 Meq Er Tab) 20 meq PO DAILY [facility] Last Admin: 12/31/16 09:37 Dose: 20 meq Spironolactone (Aldactone) 25 mg PO DAILY [facility] Last Admin: 12/31/16 09:36 Dose: 25 mg - Labs Labs: 12/30/16 07:05 12/31/16 07:45 PT 12.3 SECONDS (9.7-12.2) H 12/31/16 07:45 INR 1.1 12/31/16 07:45 APTT 34 SECONDS (21-34) 12/28/16 00:22 - Constitutional Appears: Non-toxic - Head Exam Head Exam: NORMAL INSPECTION - Eye Exam Eye Exam: Normal appearance Pupil Exam: NORMAL ACCOMODATION - ENT Exam ENT Exam: Mucous Membranes Moist - Neck Exam Neck Exam: Full ROM - Respiratory Exam Respiratory Exam: Clear to Ausculation Bilateral - Cardiovascular Exam Cardiovascular Exam: Irregular Rhythm - GI/Abdominal Exam GI & Abdominal Exam: Soft - Extremities Exam Extremities Exam: Pedal Edema - Neurological Exam Neurological Exam: Awake - Psychiatric Exam Psychiatric exam: Normal Affect - Skin Skin Exam: Normal Color Assessment and Plan - Assessment and Plan (Free Text) Assessment: at fib chf obesity coumadin
[2016-12-31] MEDS: Pantoprazole 40 mg EC Tab PO SCH (21:57)
[2017-01-01] MEDS: Levothyroxine 25 MCG TAB PO SCH (06:44)
[2017-01-01] MEDS: Ipratropium 0.02% Inhal Soln (0.5 mg/2.5 ml) UD IH SCH ×3 (07:59→21:37)
[2017-01-01 08:25] LABS: BASO # 0.1 K/uL (0.0-0.2); BASO % 0.8 % (0.0-2.0); EOS # 0.2 K/uL (0.0-0.7); HEMATOCRIT 33.3 % (34.0-47.0); LYMPH # 0.6 K/uL (1.0-4.3); LYMPH % 8.1 % (20.0-40.0); MEAN CELL VOLUME 91.2 fL (81.0-99.0); MEAN CORPUSCULAR HEMOGLOBIN 30.5 pg (27.0-31.0); MEAN CORPUSCULAR HGB CONC 33.5 g/dL (33.0-37.0); MEAN PLATELET VOLUME 9.5 fL (7.2-11.7); MONO # 0.7 K/uL (0.0-0.8); MONO % 8.7 % (0.0-10.0); PLATELET COUNT 174 K/uL (130-400); RED CELL DISTRIBUTION WIDTH 15.1 % (11.5-14.5); WHITE BLOOD COUNT 7.5 K/uL (4.8-10.8)
[2017-01-01 08:29] LABS: INR 1.1
[2017-01-01 08:35] LABS: POTASSIUM 4.6 mmol/L (3.6-5.2)
[2017-01-01 08:37] LABS: BILIRUBIN,TOTAL 0.8 mg/dL (0.2-1.3)
[2017-01-01 08:38] LABS: ALB/GLOB RATIO 0.8 (1.0-2.1); CALCIUM 7.5 mg/dl (8.6-10.4)
[2017-01-01] MEDS: Magnesium Oxide 400 mg Tab UD PO SCH ×2 (09:21→18:46)
[2017-01-01] MEDS: Potassium Chloride 20 mEq ER Tab PO SCH (09:21)
[2017-01-01] MEDS: NILOTINIB HCL PO SCH ×2 (09:22→18:46)
[2017-01-01] MEDS: Enoxaparin 60 mg Syringe SC SCH (09:22)
[2017-01-01 09:25] LABS: BASOPHIL 1 % (0-2); EOSINOPHIL 3 % (0-4); NEUTROPHIL 83 % (50-75); TOTAL CELLS COUNTED 100
--- NOTE | 2017-01-01 11:20 | CP.PCM.PN ---
Subjective - Date & Time of Evaluation Date of Evaluation: 01/01/17 Time of Evaluation: 11:18 - Subjective Subjective: still sob swallen leg at fib Objective - Vital Signs/Intake and Output Vital Signs (last 24 hours): Temp Pulse Resp BP Pulse Ox 98.3 F 83 20 102/71 98 01/01/17 07:00 01/01/17 07:00 01/01/17 07:00 01/01/17 09:23 01/01/17 07:00 Intake and Output: 01/01/17 01/01/17 06:59 18:59 Intake Total 100 Balance 100 - Medications Medications: Current Medications Aspirin (Ecotrin) 81 mg PO DAILY [facility] Last Admin: 01/01/17 09:21 Dose: 81 mg Atenolol (Tenormin) 25 mg PO DAILY [facility] Last Admin: 01/01/17 09:22 Dose: 25 mg Digoxin (Lanoxin) 0.125 mg PO DAILY@1800 [facility] Last Admin: 12/31/16 18:00 Dose: 0.125 mg Enoxaparin Sodium (Lovenox) 50 mg SC Q12 [facility] Last Admin: 01/01/17 09:22 Dose: 50 mg Ferrous Sulfate (Feosol) 325 mg PO BID [facility] Last Admin: 01/01/17 09:21 Dose: 325 mg Furosemide (Lasix) 40 mg IVP BID [facility] Home Med (Nilotinib Hcl [Tasigna]) 2 cap PO BID [facility] Last Admin: 01/01/17 09:22 Dose: 2 cap Ipratropium [place] (Atrovent) 0.5 mg IH RTID [facility] Last Admin: 01/01/17 07:59 Dose: 0.5 mg Levothyroxine Sodium (Synthroid) 25 mcg PO DAILY@0630 [facility] Last Admin: 01/01/17 06:44 Dose: 25 mcg Magnesium Oxide (Mag-Ox) 400 mg PO BID [facility] Last Admin: 01/01/17 09:21 Dose: 400 mg Metformin HCl (Glucophage) 1,000 mg PO BID [facility] Last Admin: 01/01/17 09:21 Dose: 1,000 mg Pantoprazole Sodium (Protonix Ec Tab) 40 mg PO HS [facility] Last Admin: 12/31/16 21:57 Dose: 40 mg Potassium Chloride (K-Dur 20 Meq Er Tab) 20 meq PO DAILY [facility] Last Admin: 01/01/17 09:21 Dose: 20 meq Spironolactone (Aldactone) 25 mg PO BID [facility] - Labs Labs: 01/01/17 08:13 01/01/17 08:13 PT 12.3 SECONDS (9.7-12.2) H 01/01/17 08:13 INR 1.1 01/01/17 08:13 APTT 37 SECONDS (21-34) H 01/01/17 08:13 - Constitutional Appears: Non-toxic - Head Exam Head Exam: NORMAL INSPECTION - Eye Exam Eye Exam: Normal appearance - ENT Exam ENT Exam: Mucous Membranes Moist - Neck Exam Neck Exam: Normal Inspection - Respiratory Exam Respiratory Exam: Decreased Breath Sounds - Cardiovascular Exam Cardiovascular Exam: Irregular Rhythm - GI/Abdominal Exam GI & Abdominal Exam: Normal Bowel Sounds - Rectal Exam Rectal Exam: NORMAL INSPECTION - Exam Exam: NORMAL INSPECTION - Extremities Exam Extremities Exam: Pedal Edema - Back Exam Back Exam: NORMAL INSPECTION - Neurological Exam Neurological Exam: Awake, Oriented x3 - Psychiatric Exam Psychiatric exam: Normal Mood - Skin Skin Exam: Normal Color Assessment and Plan - Assessment and Plan (Free Text) Assessment: still symtomatic at fib obesity Plan: as per orders
--- NOTE | 2017-01-01 16:40 | PN ---
DATE: 01/01/2017 SUBJECTIVE: The patient is still experiencing shortness of breath. She denies chest pain. PHYSICAL EXAMINATION: VITAL SIGNS: Blood pressure 92/66, heart rate 76, temperature 97.9, respirations 18. HEENT: Normocephalic. NECK: No JVD. CHEST: Diminished breath sounds over the bases. HEART: S1, S2 regular. EXTREMITIES: 2+ pitting edema. LABORATORIES: Hemoglobin and hematocrit 11.1 and 33.3. White count and platelet count are within no rmal limits. SMA-7: Sodium 129, potassium 4.6, chloride 96, CO2 of 26, glucose 104, BUN 21, creatin ine 1.5. ASSESSMENT: 1. Status post mitral valve repair and annuloplasty for associated mitral stenosis. 2. New onset atrial fibrillation. 3. History of leukemia. 4. Chronic renal insufficiency. RECOMMENDATIONS: Continue Aldactone 25 mg twice a day, aspirin 81 mg once a day, metformin 1 gram tw ice a day, K-Dur 20 mEq once a day, digoxin 0.125 mg daily. Reduce Lasix to 40 mg intravenously once a day. Lovenox was changed to therapeutic regimen at 136 mg q. 6 hours. Continue atenolol 25 mg onc e a day. I will order Coumadin at 10 mg today. Today's INR is 1.1. Fernando Fischer MD cc: [id number] TT: 01/01/2017 16:39:30 Confirmation # [id number] Dictation # [id number] cl
[2017-01-01] MEDS: Digoxin 125 mcg (0.125 mg) Tab PO SCH (18:48)
[2017-01-01] MEDS: Pantoprazole 40 mg EC Tab PO SCH (22:59)
[2017-01-01] MEDS: Enoxaparin 150 mg Syringe SC SCH (23:00)
[2017-01-02] MEDS: Levothyroxine 25 MCG TAB PO SCH (05:55)
[2017-01-02] MEDS: Ipratropium 0.02% Inhal Soln (0.5 mg/2.5 ml) UD IH SCH ×3 (08:29→19:32)
[2017-01-02 08:49] LABS: POTASSIUM 4.8 mmol/L (3.6-5.2)
[2017-01-02 08:52] LABS: CALCIUM 7.2 mg/dl (8.6-10.4)
[2017-01-02] MEDS: Potassium Chloride 20 mEq ER Tab PO SCH (09:43)
[2017-01-02] MEDS: Enoxaparin 150 mg Syringe SC SCH ×2 (09:44→22:06)
[2017-01-02] MEDS: Magnesium Oxide 400 mg Tab UD PO SCH ×2 (09:45→18:54)
[2017-01-02] MEDS: NILOTINIB HCL PO SCH ×2 (09:45→18:54)
--- NOTE | 2017-01-02 10:16 | CP.PCM.PN ---
Subjective - Date & Time of Evaluation Date of Evaluation: 01/02/17 Time of Evaluation: 10:14 - Subjective Subjective: sob palpitation Objective - Vital Signs/Intake and Output Vital Signs (last 24 hours): Temp Pulse Resp BP Pulse Ox 97.9 F 88 20 105/73 98 01/02/17 08:11 01/02/17 09:55 01/02/17 08:11 01/02/17 09:55 01/02/17 08:11 - Medications Medications: Current Medications Aspirin (Ecotrin) 81 mg PO DAILY [facility] Last Admin: 01/02/17 09:43 Dose: 81 mg Atenolol (Tenormin) 25 mg PO DAILY [facility] Last Admin: 01/02/17 09:45 Dose: 25 mg Digoxin (Lanoxin) 0.125 mg PO DAILY@1800 [facility] Last Admin: 01/01/17 18:48 Dose: 0.125 mg Enoxaparin Sodium (Lovenox) 136 mg SC Q12 [facility] Last Admin: 01/02/17 09:44 Dose: 136 mg Ferrous Sulfate (Feosol) 325 mg PO BID [facility] Last Admin: 01/02/17 09:43 Dose: 325 mg Furosemide (Lasix) 40 mg IVP DAILY [facility] Last Admin: 01/02/17 09:44 Dose: 40 mg Home Med (Nilotinib Hcl [Tasigna]) 2 cap PO BID [facility] Last Admin: 01/02/17 09:45 Dose: 2 cap Ipratropium [place] (Atrovent) 0.5 mg IH RTID [facility] Last Admin: 01/02/17 08:29 Dose: 0.5 mg Levothyroxine Sodium (Synthroid) 25 mcg PO DAILY@0630 [facility] Last Admin: 01/02/17 05:55 Dose: 25 mcg Magnesium Oxide (Mag-Ox) 400 mg PO BID [facility] Last Admin: 01/02/17 09:45 Dose: 400 mg Metformin HCl (Glucophage) 1,000 mg PO BID [facility] Last Admin: 01/02/17 09:43 Dose: 1,000 mg Pantoprazole Sodium (Protonix Ec Tab) 40 mg PO HS [facility] Last Admin: 01/01/17 22:59 Dose: 40 mg Potassium Chloride (K-Dur 20 Meq Er Tab) 20 meq PO DAILY [facility] Last Admin: 01/02/17 09:43 Dose: 20 meq Spironolactone (Aldactone) 25 mg PO BID [facility] Last Admin: 01/02/17 09:43 Dose: 25 mg - Labs Labs: 01/01/17 08:13 01/02/17 08:30 PT 12.3 SECONDS (9.7-12.2) H 01/01/17 08:13 INR 1.1 01/01/17 08:13 APTT 37 SECONDS (21-34) H 01/01/17 08:13 - Constitutional Appears: Non-toxic - Head Exam Head Exam: NORMAL INSPECTION - Eye Exam Eye Exam: Normal appearance Pupil Exam: NORMAL ACCOMODATION - ENT Exam ENT Exam: Mucous Membranes Moist - Respiratory Exam Respiratory Exam: Decreased Breath Sounds - Cardiovascular Exam Cardiovascular Exam: Irregular Rhythm - GI/Abdominal Exam GI & Abdominal Exam: Normal Bowel Sounds - Extremities Exam Extremities Exam: Pedal Edema - Back Exam Back Exam: NORMAL INSPECTION - Psychiatric Exam Psychiatric exam: Normal Affect - Skin Skin Exam: Normal Color Assessment and Plan - Assessment and Plan (Free Text) Assessment: CHF AT FIBRILATION MORBID OBESITY HYPERGLYCEAMIA Plan: CONT PER ORDERS
[2017-01-02 12:19] LABS: INR 1.3
--- NOTE | 2017-01-02 15:08 | PN ---
DATE: 01/02/2017 The patient denies chest pain. She is still experiencing bilateral leg swelling. The patient practi vince staying in bed, is not motivated to stay on the chair, she only leaves bed to go to the [facility]. PHYSICAL EXAMINATION: VITAL SIGNS: Blood pressure 105/73, heart rate 88, temperature 97.9, respirations 20. HEENT: Normocephalic. NECK: No JVD. CHEST: Absent breath sounds over the bases. HEART: S1, S2 regular. EXTREMITIES: 2+ pitting edema. LABORATORIES: Today's INR is 1.3 and PT ____. ASSESSMENT: 1. New onset atrial fibrillation. 2. Status post mitral valve repair and annuloplasty for severe mitral stenosis. 3. History of leukemia. 4. Anemia. RECOMMENDATIONS: Continue Aldactone 25 mg twice a day, Coumadin 7.5 mg will be administered today. Continue K-Dur at 20 mEq daily, Lanoxin 0.125 mg daily and therapeutic subcutaneous Lovenox as well a s Tenormin 25 mg daily. Follow up INR tomorrow. Fernando Fischer MD cc: [id number] TT: 01/02/2017 15:07:29 Confirmation # [id number] Dictation # [id number] jn
[2017-01-02] MEDS: Digoxin 125 mcg (0.125 mg) Tab PO SCH (18:54)
[2017-01-02] MEDS: Pantoprazole 40 mg EC Tab PO SCH (22:06)
[2017-01-03] MEDS: Levothyroxine 25 MCG TAB PO SCH (05:51)
[2017-01-03] MEDS: Ipratropium 0.02% Inhal Soln (0.5 mg/2.5 ml) UD IH SCH ×3 (08:11→19:19)
[2017-01-03] MEDS: Magnesium Oxide 400 mg Tab UD PO SCH ×2 (10:29→18:59)
[2017-01-03] MEDS: Potassium Chloride 20 mEq ER Tab PO SCH (10:30)
[2017-01-03] MEDS: Enoxaparin 150 mg Syringe SC SCH ×2 (10:30→22:50)
[2017-01-03] MEDS: NILOTINIB HCL PO SCH ×2 (11:02→18:00)
--- NOTE | 2017-01-03 11:16 | CP.PCM.PN ---
Subjective - Date & Time of Evaluation Date of Evaluation: 01/03/17 Time of Evaluation: 11:14 - Subjective Subjective: still sob and oeadeama Objective - Vital Signs/Intake and Output Vital Signs (last 24 hours): Temp Pulse Resp BP Pulse Ox 98.5 F 82 20 120/82 97 01/03/17 01:31 01/03/17 01:31 01/03/17 01:31 01/03/17 10:38 01/03/17 01:31 - Medications Medications: Current Medications Aspirin (Ecotrin) 81 mg PO DAILY [facility] Last Admin: 01/03/17 10:30 Dose: 81 mg Atenolol (Tenormin) 25 mg PO DAILY [facility] Last Admin: 01/03/17 10:29 Dose: 25 mg Digoxin (Lanoxin) 0.125 mg PO DAILY@1800 [facility] Last Admin: 01/02/17 18:54 Dose: 0.125 mg Enoxaparin Sodium (Lovenox) 136 mg SC Q12 [facility] Last Admin: 01/03/17 10:30 Dose: 136 mg Ferrous Sulfate (Feosol) 325 mg PO BID [facility] Last Admin: 01/03/17 10:30 Dose: 325 mg Furosemide (Lasix) 40 mg IVP DAILY [facility] Last Admin: 01/03/17 10:38 Dose: 40 mg Home Med (Nilotinib Hcl [Tasigna]) 2 cap PO BID [facility] Last Admin: 01/03/17 11:02 Dose: Not Given Ipratropium [place] (Atrovent) 0.5 mg IH RTID [facility] Last Admin: 01/03/17 08:11 Dose: 0.5 mg Levothyroxine Sodium (Synthroid) 25 mcg PO DAILY@0630 [facility] Last Admin: 01/03/17 05:51 Dose: 25 mcg Magnesium Oxide (Mag-Ox) 400 mg PO BID [facility] Last Admin: 01/03/17 10:29 Dose: 400 mg Metformin HCl (Glucophage) 1,000 mg PO BID [facility] Last Admin: 01/03/17 10:30 Dose: 1,000 mg Pantoprazole Sodium (Protonix Ec Tab) 40 mg PO HS [facility] Last Admin: 01/02/17 22:06 Dose: 40 mg Potassium Chloride (K-Dur 20 Meq Er Tab) 20 meq PO DAILY [facility] Last Admin: 01/03/17 10:30 Dose: 20 meq Spironolactone (Aldactone) 25 mg PO BID [facility] Last Admin: 01/03/17 10:30 Dose: 25 mg Warfarin Sodium (Coumadin) 5 mg PO 1800 [facility] Stop: 01/03/17 18:01 - Labs Labs: 01/01/17 08:13 01/02/17 08:30 PT 15.1 SECONDS (9.7-12.2) H 01/02/17 11:59 INR 1.3 01/02/17 11:59 APTT 37 SECONDS (21-34) H 01/01/17 08:13 - Constitutional Appears: Non-toxic - Head Exam Head Exam: NORMAL INSPECTION - Eye Exam Eye Exam: Normal appearance Pupil Exam: NORMAL ACCOMODATION - ENT Exam ENT Exam: Mucous Membranes Moist - Neck Exam Neck Exam: Full ROM - Respiratory Exam Respiratory Exam: Decreased Breath Sounds - Cardiovascular Exam Cardiovascular Exam: Irregular Rhythm - GI/Abdominal Exam GI & Abdominal Exam: Soft - Extremities Exam Extremities Exam: Pedal Edema - Back Exam Back Exam: NORMAL INSPECTION Assessment and Plan - Assessment and Plan (Free Text) Assessment: [facility] at [facility] generalised weekness Plan: as per orders
[2017-01-03 17:42] LABS: INR 2.1
--- NOTE | 2017-01-03 17:56 | PN ---
DATE: 01/03/2017 The patient denies chest pain. She is experiencing shortness breath on minimal exertion. PHYSICAL EXAMINATION: VITAL SIGNS: Blood pressure 120/82, heart rate 96, temperature 98.2, respirations 18. On the monito r, the patient has atrial fibrillation with controlled heart rate. HEENT: Normocephalic. NECK: No JVD. CHEST: Absent breath sounds over the bases. HEART: S1, S2 regular. EXTREMITIES: 2+ pitting edema. LABORATORIES: Today's blood sugar is 109 and 122. Today's INR is still pending. ASSESSMENT: 1. New onset atrial fibrillation. 2. Status post mitral valve repair and annuloplasty for aortic stenosis. 3. History of leukemia. RECOMMENDATIONS: Continue therapeutic subcutaneous Lovenox, continue Synthroid 25 mg once a day, ate nolol 25 mg once a day, Lasix at 40 mg intravenous a day, digoxin 0.125 mg orally once a day. Repeat digoxin level. Obtain INR today. Fernando Fischer MD cc: [id number] TT: 01/03/2017 17:56:05 Confirmation # [id number] Dictation # [id number] mn
[2017-01-03] MEDS: Digoxin 125 mcg (0.125 mg) Tab PO SCH (18:59)
[2017-01-03 19:01] VITALS: PULSE 74
--- NOTE | 2017-01-03 22:44 | CP.PCM.CON ---
History of Present Illness - History of Present Illness History of Present Illness: Ms. Hernandez is a 46 year old female with a history of cardiac valve surgery not on anticoagulation, CML on nilotinib, admitted with fluid retention and afib. The patient reports to progressive lower extremity and abdominal swelling over the course of 1-2 weeks. She also notes to increasing shortness of breath which prompted her to come to the hospital. She is not sure how her BCR/ABL is doing on nilotinib. Past medical history: CML Past surgical history: Cardiac valve surgery Family history: Mother had lung cancer (smoker), sister had ovarian cancer Social history: Denies tobacco, alcohol, and illicit drug use. Allergies: NKA Review of sytsems: All remaining review of systems including HEENT, cardiovascular, respiratory, gastrointestinal, genitourinary, musculoskeletal, dermatologic, neurologic, and psychiatric are neative unless mentioned in the HPI. Past Patient History - Past Medical History & Family History Past Medical History?: Yes - Past Social History Smoking Status: Never Smoked - CARDIAC Hx Congestive Heart Failure: Yes Hx Hypertension: Yes - PULMONARY Hx Asthma: Yes - NEUROLOGICAL Hx Neurological Disorder: No - HEENT Hx HEENT Problems: No - RENAL Hx Chronic Kidney Disease: No - ENDOCRINE/METABOLIC Hx Diabetes Mellitus Type 2: Yes - HEMATOLOGICAL/ONCOLOGICAL Hx Blood Disorders: Yes Hx Blood Transfusions: No Hx Leukemia: Yes - INTEGUMENTARY Hx Dermatological Problems: No - MUSCULOSKELETAL/RHEUMATOLOGICAL Hx Musculoskeletal Disorders: No - GASTROINTESTINAL Hx Gastrointestinal Disorders: No - GENITOURINARY/GYNECOLOGICAL Hx Genitourinary Disorders: No - PSYCHIATRIC Hx Substance Use: No - SURGICAL HISTORY Hx Open Heart Surgery: Yes (2013) Other/Comment: ONE OVARY REMOVED - ANESTHESIA Hx Anesthesia: Yes Hx Anesthesia Reactions: No Has any member of the family had a problem w/ anesthesia?: No Meds Allergies/Adverse Reactions: Allergies Allergy/AdvReac Type Severity Reaction Status Date / Time No Known Allergies Allergy Verified 12/27/16 22:56 - Medications Medications: Current Medications Aspirin (Ecotrin) 81 mg PO DAILY [facility] Last Admin: 01/03/17 10:30 Dose: 81 mg Atenolol (Tenormin) 25 mg PO DAILY [facility] Last Admin: 01/03/17 10:29 Dose: 25 mg Digoxin (Lanoxin) 0.125 mg PO DAILY@1800 [facility] Last Admin: 01/03/17 18:59 Dose: 0.125 mg Enoxaparin Sodium (Lovenox) 136 mg SC Q12 [facility] Last Admin: 01/03/17 10:30 Dose: 136 mg Ferrous Sulfate (Feosol) 325 mg PO BID [facility] Last Admin: 01/03/17 18:58 Dose: 325 mg Furosemide (Lasix) 40 mg IVP DAILY [facility] Last Admin: 01/03/17 10:38 Dose: 40 mg Home Med (Nilotinib Hcl [Tasigna]) 2 cap PO BID [facility] Last Admin: 01/03/17 11:02 Dose: Not Given Ipratropium [place] (Atrovent) 0.5 mg IH RTID [facility] Last Admin: 01/03/17 19:19 Dose: 0.5 mg Levothyroxine Sodium (Synthroid) 25 mcg PO DAILY@0630 [facility] Last Admin: 01/03/17 05:51 Dose: 25 mcg Magnesium Oxide (Mag-Ox) 400 mg PO BID [facility] Last Admin: 01/03/17 18:59 Dose: 400 mg Metformin HCl (Glucophage) 1,000 mg PO BID [facility] Last Admin: 01/03/17 18:58 Dose: 1,000 mg Pantoprazole Sodium (Protonix Ec Tab) 40 mg PO HS [facility] Last Admin: 01/02/17 22:06 Dose: 40 mg Potassium Chloride (K-Dur 20 Meq Er Tab) 20 meq PO DAILY [facility] Last Admin: 01/03/17 10:30 Dose: 20 meq Spironolactone (Aldactone) 25 mg PO BID [facility] Last Admin: 01/03/17 18:59 Dose: 25 mg Physical Exam - Head Exam Head Exam: ATRAUMATIC - Eye Exam Eye Exam: Normal appearance - Respiratory Exam Respiratory Exam: NORMAL BREATHING PATTERN - Cardiovascular Exam Cardiovascular Exam: +S1, +S2 - GI/Abdominal Exam GI & Abdominal Exam: Normal Bowel Sounds - Extremities Exam Extremities exam: Positive for: pedal edema - Neurological Exam Neurological exam: Oriented x3 - Psychiatric Exam Psychiatric exam: Normal Affect, Normal Mood - Skin Skin Exam: Warm Results - Vital Signs Recent Vital Signs: Last Vital Signs Temp 97.3 F L 01/03/17 16:00 Pulse 74 01/03/17 16:00 Resp 20 01/03/17 16:00 BP 108/74 01/03/17 16:00 Pulse Ox 99 01/03/17 16:00 - Labs Result Diagrams: 01/01/17 08:13 01/02/17 08:30 Labs: Laboratory Results - last 24 hr 01/03/17 01/03/17 01/03/17 06:47 11:52 17:22 PT INR POC Glucose (mg/dL) 109 122 H 107 Digoxin 01/03/17 01/03/17 01/03/17 17:27 19:16 22:23 PT 24.2 H D INR 2.1 D POC Glucose (mg/dL) 183 H Digoxin 1.1 Assessment & Plan (1) CML (chronic myeloid leukemia) Assessment and Plan: unknown BCR/ABL but normal wbc of note, nilotinib can cause prolongation of of QT, fluid retention (low voltage EKG); recommend echo other side effects would be electrolyte imbalance and hypothyroid; will check mag and TSH Status: Acute (2) Anemia Assessment and Plan: will check ferritin, retic count, b12, folate likely secondary to nilotinib and CML Thank you for this interesting consult. Status: Acute
[2017-01-03] MEDS: Pantoprazole 40 mg EC Tab PO SCH (22:50)
[2017-01-04 01:27] VITALS: O2SAT 100
[2017-01-04] MEDS: Levothyroxine 25 MCG TAB PO SCH (06:17)
[2017-01-04 07:12] LABS: BASO # 0.1 K/uL (0.0-0.2); BASO % 0.8 % (0.0-2.0); EOS # 0.2 K/uL (0.0-0.7); EOS % 3.3 % (0.0-4.0); HEMATOCRIT 34.5 % (34.0-47.0); LYMPH # 0.7 K/uL (1.0-4.3); LYMPH % 9.9 % (20.0-40.0); MEAN CELL VOLUME 91.4 fL (81.0-99.0); MEAN CORPUSCULAR HGB CONC 32.8 g/dL (33.0-37.0); MEAN PLATELET VOLUME 9.4 fL (7.2-11.7); MONO # 0.7 K/uL (0.0-0.8); MONO % 9.1 % (0.0-10.0); NRBC % 0.1 % (0.0-2.0); PLATELET COUNT 178 K/uL (130-400); RED CELL DISTRIBUTION WIDTH 15.7 % (11.5-14.5); WHITE BLOOD COUNT 7.4 K/uL (4.8-10.8)
[2017-01-04 07:15] LABS: INR 2.1
[2017-01-04] MEDS: Ipratropium 0.02% Inhal Soln (0.5 mg/2.5 ml) UD IH SCH ×2 (07:23→13:48)
[2017-01-04 07:28] LABS: POTASSIUM 4.2 mmol/L (3.6-5.2)
[2017-01-04 07:31] LABS: CALCIUM 7.4 mg/dl (8.6-10.4)
[2017-01-04 07:58] LABS: THYROID STIMULATING HORMONE 13.1 mIU/L (0.46-4.68)
[2017-01-04 08:49] VITALS: PULSE 87; RESP 18; TEMP 97.8
[2017-01-04 08:59] LABS: EOSINOPHIL 3 % (0-4); MYELOCYTE 1 % (0-0); NEUTROPHIL 83 % (50-75); TOTAL CELLS COUNTED 100
[2017-01-04] MEDS: Potassium Chloride 20 mEq ER Tab PO SCH (09:59)
[2017-01-04] MEDS ORDERED: TASIGNA 150 MG PO SCH (10:00)
[2017-01-04] MEDS: Enoxaparin 150 mg Syringe SC SCH (10:00)
[2017-01-04 10:01] VITALS: BP 103/61
[2017-01-04] MEDS: Magnesium Oxide 400 mg Tab UD PO SCH (10:01)
--- NOTE | 2017-01-04 16:11 | PN ---
DATE: 01/04/2017 The patient denies chest pain. PHYSICAL EXAMINATION: VITAL SIGNS: Blood pressure 103/61, heart rate 87, temperature 97.8, respirations 18. HEENT: Head normocephalic. NECK: No JVD. CHEST: Diminished breath sounds over the bases. HEART: S1, S2 regular. EXTREMITIES: 2+ pitting edema. LABORATORIES: Hemoglobin and hematocrit 11.3 and 34.5. White count and platelet count are within no rmal limit. Today's BUN and creatinine are 20 and 1.5. Sodium is 131. Today's INR is 2.1. ASSESSMENT: 1. New onset atrial fibrillation. 2. Status post mitral valve repair and mitral annuloplasty. 3. Congestive heart failure. 4. ____. RECOMMENDATIONS: I recommend ____ starting Coumadin 7.5 mg today and discharge the patient on 5 mg o rally daily with an INR in a week. Fernando Fischer MD cc: [id number] TT: 01/04/2017 16:10:10 Confirmation # [id number] Dictation # [id number]
--- NOTE | 2017-01-04 18:09 | CP.PCM.PN ---
Subjective - Date & Time of Evaluation Date of Evaluation: 01/04/17 Time of Evaluation: 11:00 - Subjective Subjective: Alert, oriented, no acute distress. Objective - Vital Signs/Intake and Output Vital Signs (last 24 hours): Temp Pulse Resp BP Pulse Ox 97.8 F 87 18 103/61 100 01/04/17 07:15 01/04/17 07:15 01/04/17 07:15 01/04/17 10:00 01/04/17 07:15 - Labs Labs: 01/04/17 07:05 01/04/17 07:05 PT 23.6 SECONDS (9.7-12.2) H 01/04/17 07:05 INR 2.1 01/04/17 07:05 APTT 37 SECONDS (21-34) H 01/01/17 08:13 Assessment and Plan - Assessment and Plan (Free Text) Assessment: Patient is seen and examined, alert and orientedx3, denies sob or chest pains. No acute distress noted, INR 2.2 today. D/W DR Floyd, discharge plan on coumadin at 4mg po daily. Advised to f/u with PMD to check INR on Wednesday. To follow up with DR Judy Buck in 1 week.
--- NOTE | 2017-01-04 18:15 | PCM.HF ---
Heart Failure Core Measure - Heart Failure Ejection Fraction: 40 % or Greater (EF 62%) SHANNON Inhibitor Prescribed: No Contraindication/Reason for not providing: REAL INSUFFICIENCY Contraindication/Reason for not providing: ON TENORMIN Angiotensin II Receptor Rogerio Prescribed: No Contraindication/Reason for not providing: renal insufficiency AnticoagulationTherapy for Atrial Fibrillation/Atrialflutter: Yes Aldosterone Antagonist Prescribed: No Contraindication/Reason for not providing: renal dysfunction Hydralazine Nitrate Prescribed: No Contraindication/Reason for not providing: EF >40% Implantable Cardioverter Defibrillator Therapy: No Contraindication/Reason for not providing: EF>40% Cardiac Resynchronization Therapy Prescribed: No Contraindication/Reason for not providing: not indicated - Follow up Will be discharged to: Home Follow Up Date (must be within 7 days from discharge): 01/06/17 Follow Up Time: 09:00
--- NOTE | 2017-01-13 14:30 | DS ---
This patient is a 46-year-old female, came into the Emergency Room with shortness of breath, abdomina l distention, abdominal pain and she was having palpitations and shortness of breath. On examination , she has lung congestion. She has abdominal distention. No tenderness. She has a history of leuke benito and she has diabetes. ALLERGIES: She is not allergic to medication. She was admitted to monitor her sugar. Her blood pressure was low on admission and she had x-ray to rule out recurrent congestive heart failure because she has dyspnea and leg edema. The chest x-ray w as done and it shows left lower lobe infiltrate, overlying soft tissue density. She had also an echo cardiogram to check on her heart. The patient has atrial fibrillation with rapid ventricular respons e, low voltage, QRS, and nonspecific T-wave abnormalities on the EKG. She had ____ left ventricular hypertrophy, left systolic function normal. She has also restricted __ __ dysfunction and she has dilated right ventricle, left atrium dilated and she has mitral valve regu rgitation ____ annuloplasty ring is noted in the mitral position. She also had pulmonic valve regurg itation. There was not any pericardial effusion. There is tricuspid regurg with ventricular systoli c function ____ pulmonary hypertension and there was no pericardial effusion. The patient was admitted and seen by cardiology, Dr. Fernando Fischer. His assessment is status po st mitral valve ____ moderate to severe pulmonary hypertension, right-sided heart failure, new onset atrial fibrillation and history of leukemia. Her lab results show CBC was okay. She is taking Coumadin and the INR was kind of high, so will hold the Coumadin until we ____. She has blood sugar monitored, 122-169, and her ____ proBNP was very [place] gh 9680. Her thyroid also was abnormal. Digoxin was ordered for her. She was put in telemetry and she was seen, as I said, by cardiology and she was seen also by Dr. Rebel Buck for the leukemia and she was started on ____ and oxygen was ordered for her. She was started on IV fluids. The patient improved. On 01/04/2017, she was also seen by the nurse practitioner, Priyanka osorio. Her vital signs were ok. She alert, oriented. She was not in any distress and her INR, the las t one was 2.1. She had sugar of 115. Her hemoglobin is stable at 11.3 and examination was unremarka ble, was fine, so the patient was sent home to continue with Coumadin, less dose than what she was ajith , and she was advised to see cardiology and her MD and to follow up by Dr. Buck or oncology for the leukemia. FINAL DIAGNOSES: Acute atrial fibrillation with rapid heart rate, status post mitral valve surgery, diabetes mellitus, mitral valve repair, congestive heart failure and diabetes mellitus which is under control with treatment. Juana Floyd MD cc: [id number] TT: 01/13/2017 12:58:39 cl
== END 2017-01-04 14:58 | disposition home or self-care (01) | DRG 292 ==
LOC: C.ER 22:46 → C.9E 12-28 01:57 → C.6T 12-28 14:58
PROVIDERS: ADMIT Internal Medicine; ATTEND Internal Medicine
DX: I13.0 Hypertensive heart and chronic kidney disease with heart failure and stage 1 through stage 4 chronic kidney disease, or unspecified chronic kidney disease (principal); C92.10 Chronic myeloid leukemia, BCR/ABL-positive, not having achieved remission; E11.22 Type 2 diabetes mellitus with diabetic chronic kidney disease; I27.2 Other secondary pulmonary hypertension; I50.9 Heart failure, unspecified; J45.909 Unspecified asthma, uncomplicated; I48.91 Unspecified atrial fibrillation; E66.9 Obesity, unspecified; Z87.891 Personal history of nicotine dependence; N18.9 Chronic kidney disease, unspecified; Z95.2 Presence of prosthetic heart valve; E11.65 Type 2 diabetes mellitus with hyperglycemia